=== PATIENT | female | born 1975 | race African-American/Black ===

== ENCOUNTER 2019-12-11 18:43 | Emergency (ER) | payer OTHER ==
[~2019-12-11] VITALS: Ht 162.6 cm; Wt 104.3 kg
[2019-12-11 20:02] LABS: ABSOLUTE NEUTROPHILS 3.7 thou/uL (1.4-8.2); BASOPHILS 0.8 % (0.0-2.0); EOSINOPHILS 3.5 % (0.0-3.0); HEMATOCRIT 41.8 % (37.0-47.0); LYMPHOCYTES 45.6 % (24.0-44.0); MCH 31.3 pg (26.0-34.0); MCHC 33.5 g/dL (28.0-37.0); MCV 93.5 fL (80.0-100.0); MONOCYTES 9.7 % (1.0-8.0); PLATELET COUNT 245 thou/uL (150-400); POLYS 40.4 % (36.0-66.0); RBC 4.48 mil/uL (4.20-5.00); RDW 13.8 % (10.5-14.5); WBC 9.1 thou/uL (4.0-11.0)
[2019-12-11 20:11] LABS: ANION GAP 5 mmol/L (7-16); BUN 15 mg/dL (7-18); CHLORIDE 104 mmol/L (98-107); CO2 27 mmol/L (21-32); CREATININE 0.9 mg/dL (0.6-1.0); GLUCOSE 95 mg/dL (74-106); SODIUM 136 mmol/L (136-145)
[2019-12-11 20:20] LABS: ALBUMIN 3.7 g/dL (3.4-5.0); SGOT 16 U/L (15-37); SGPT 28 U/L (30-65); TOTAL BILIRUBIN 0.3 mg/dL (<0.1-1.0); TOTAL PROTEIN 7.5 g/dL (6.4-8.2); TROPONIN-I <0.06 ng/mL (<0.06)
[2019-12-11 23:24] VITALS: BP 104/65
--- NOTE | 2019-12-13 07:39 | EKG ---
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
== END 2019-12-11 23:23 | disposition home or self-care (01) ==
LOC: ER 18:43
PROVIDERS: Emergency Medicine
DX: R07.9 Chest pain, unspecified (principal); R06.02 Shortness of breath; R05 Cough; E07.9 Disorder of thyroid, unspecified; F17.210 Nicotine dependence, cigarettes, uncomplicated